=== PATIENT | male | born 1955 | race Two or more races ===

== ENCOUNTER 2023-02-02 07:21 | Outpatient (CLI) | payer OTHER | END 2023-02-02 07:28 | disposition home or self-care (01) | LOC: NUCLEAR 07:21 | PROVIDERS: ATTEND Internal Medicine Cardiovascular Disease | DX: I25.119 Atherosclerotic heart disease of native coronary artery with unspecified angina pectoris (principal); R06.00 Dyspnea, unspecified; I11.9 Hypertensive heart disease without heart failure; E03.9 Hypothyroidism, unspecified; R73.02 Impaired glucose tolerance (oral); E55.9 Vitamin D deficiency, unspecified ==

== ENCOUNTER 2023-02-02 08:37 | Outpatient (CLI) | payer OTHER | END 2023-02-02 08:40 | disposition home or self-care (01) | LOC: LAB 08:37 | PROVIDERS: ATTEND Internal Medicine | DX: U07.1 COVID-19 (principal); B34.1 Enterovirus infection, unspecified ==